=== PATIENT | male | born 1970 | race Caucasian/White ===

== ENCOUNTER 2016-11-17 18:29 | Inpatient (IN) | payer SELFPAY ==
[~2016-11-17] VITALS: Ht 175.3 cm; Wt 70.2 kg
[2016-11-18] MEDS ORDERED: TYLENOL DPS325 MG PO (13:19)
--- NOTE | 2016-11-20 00:25 | HP ---
ADMIT: 11/17/2016 RM/LOC: 316 [facility] MR#: [id number] [facility] [id number] [address] [id number] SERA NEGRETE [address] [place] [address] [address] [place] [address] Pre-OP History and Physical SEX: M AGE: 46 : 1970 DATE OF SERVICE: REASON FOR ADMISSION: Facial numbness. HISTORY OF PRESENT ILLNESS: The patient noticed left facial and left hand numbness over the last day. He started looking up the possible symptoms associated with that on [employer] and decided he should come into the ER. He is from out of town from [place], [place]. He is here doing some carpentry. He is concerned about staying overnight and requests to go back to his motel and get some of his belongings. 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 He said he had a couple of seizures as a child but has never had any. He does not see doctors. With the exception of checking in on his eye exam, does not obtain routine medical care. SOCIAL HISTORY: He smokes and drinks. He said he denies any use of any other drugs, specifically questioned were methamphetamine and cocaine. FAMILY HISTORY: No history of neurosurgical disease. REVIEW OF SYSTEMS: Complete review of systems was obtained and found to be negative with the exception of the aforementioned history of present illness. PHYSICAL EXAMINATION: VITAL SIGNS: 149/85, 104 beats, 18 respirations, 98.2 degrees, 73 kg, 97% on room air. 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 He does have a bit of lip droop on the right, but he says that has been present as a lifelong feature. He is unkempt. CHEST: He has normal respiratory excursion. ABDOMEN: He has nonobese abdomen. EXTREMITIES: 2+ radial pulses. NEUROLOGICAL EXAM: MENTAL STATUS: He is awake, alert, and oriented x4. He has no dysphonia, dysarthria, or aphasia. His affect is appropriate. His thought content is normal. CRANIAL NERVES: Cranial nerves II through XII are individually tested and found to be intact without deficit. MOTOR EXAM: Motor exam reveals 5/5 strength in bilateral upper and lower extremities. Deep tendon reflexes 3/4 in the upper and lower extremities. CEREBELLAR EXAM: He has no dysmetria or dysdiadochokinesia. SENSATION: Decreased in the left face and left hand. GAIT: Not tested. ASSESSMENT AND PLAN: Mr. Negrete is a very pleasant 46-year-old gentleman with reported history of Sturge-Hair syndrome, although he has the glaucoma but ADMIT: 11/17/2016 RM/LOC: 316 [facility] MR#: [id number] [address] [place] [id number] MADELEINE, SERA [address] [place] [address] Pre-OP History and Physical SEX: M AGE: 46 : 1970 really no intracranial findings consistent with Sturge-Hair. He does not have cerebral calcifications. He reports that he may have had some seizures as a baby but has not had any and is not on any medication for. He does have the neurocutaneous manifestations of the large port-wine stain in the right hemiface that appears to involve all 3 trigeminal dermatomal distributions. 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 This would be his first episode of any issue with that. Because of the hemorrhage, we are going to keep him in the ICU overnight, although the patient really does not particularly want to stay. I recommend overnight frequent neuro checks and a repeat CAT scan in the morning to evaluate for any change. He will certainly need long-term followup for this. He is from [place], [place]. I recommend either the vascular neurosurgeons at [facility] or at [facility]. Either of those 2 facilities will be close enough to [place] to be able to keep track of him. If he really pushes issue he wants to go home tomorrow as long as things were stable on scan, he had no progressive changes or increasing hemorrhage or edema or worsening exam, I would consider that. I believe he understands the inherent risks of a pontine hemorrhage and the differential diagnosis including cavernous malformation, tumor, vascular malformation otherwise, pontine hemorrhage as a result of hypertension or tobacco use as well as others. We will get a CAT scan in the morning. Ji Martin MD/ cleve JOB #: [id number] CC: Ji Martin, Attending Physician Ji Martin, Family Physician
--- NOTE | 2016-11-26 14:31 | ER ---
ADMIT: 11/17/2016 RM/LOC: 316 [facility] MR#: [id number] [address] [id number] SERA SALVADOR [address] [place] [address] Emergency Room Report SEX: M AGE: 46 : 1970 DATE: 11/17/2016 ADDENDUM: CHIEF COMPLAINT: Numbness to the left side of the face. HISTORY OF PRESENT ILLNESS: This is a 46-year-old male, who has presented with left facial numbness, started about 24 hours ago, he did not think much of it, it started on the lip area, then it progressed up into his cheek and the lateral aspect of his nose. He went on the Internet and googled why his face is numb, was worried about stroke or Schwartz's palsy, so came in to the ER. EMERGENCY ROOM COURSE: Initially, a CT of his head was done, there was an abnormality with the CT, so MRI with and without contrast was ordered to clarify on the mass that was seen on the CT. He does appear to have a vascular malformation in the yesica area with a small hemorrhage associated with it. I did speak with Dr. Ji Martin, he is coming in to evaluate the patient in the ED. CLINICAL IMPRESSION: Vascular malformation of the yesica. CANDICE Chávez / Jame Aranda MD / joselinl JOB #: [id number] CC: Ji Martin MD, Attending Physician Ji Martin MD, Family Physician
== END 2016-11-18 12:30 | disposition home or self-care (01) | DRG 66 ==
LOC: ER 18:29 → 3ICU 21:30
PROVIDERS: ADMIT Neurological Surgery
DX: I61.3 Nontraumatic intracerebral hemorrhage in brain stem (principal); F17.200 Nicotine dependence, unspecified, uncomplicated; Q04.9 Congenital malformation of brain, unspecified; H40.9 Unspecified glaucoma; Q82.5 Congenital non-neoplastic nevus